=== PATIENT | female | born 2000 | race Caucasian/White ===

== ENCOUNTER 2023-08-03 10:04 | Observation (INO) ==
[2023-08-03] MEDS ORDERED: ALBUTEROL 0.083% NEBU SOLN 3 ML VIAL NEB STA (10:30)
--- NOTE | 2023-08-03 10:33 | Emergency Department Note ---
Impression & Plan Hypoxia, Asthma with exacerbation ED Provider Note NAME: KORI NERI AGE: 23 SEX: F : 2000 ARRIVES VIA: Ambulance INFORMANT: Patient ED PROVIDER(S): Antione Mclain DO CHIEF COMPLAINT: shortness of breath HPI: Patient is a 23-year-old female who is a [employer] student with a past medical history of asthma that presents to the ER for shortness of breath. Symptoms started on Wednesday have been gradually worsening. She does use albuterol, Flovent, Singulair and neb treatments. She went to [facility] and received 125 of Solu-Medrol. Denies any headache or change in vision. She admits to midsternal chest pain and shortness of breath which feels consistent with her previous bouts. ADDITIONAL HISTORY OBTAINED: Per HPI Chronic Medical/Social Conditions Affecting Care: Per HPI PAST MEDICAL HISTORY:See Below PAST SURGICAL HISTORY:See Below FAMILY HISTORY:See Below SOCIAL HISTORY:See Below HOME MEDICATIONS:See Below ALLERGIES:See Below VITALS:See Below PHYSICAL EXAMINATION: GENERAL: Sitting up in chair, alert, slightly dyspneic with conversation EYE EXAM: normal conjunctiva. OROPHARYNX: mucous membranes are moist NECK: supple, no nuchal rigidity, no adenopathy, non-tender LUNGS: Diffuse wheezing bilaterally with poor air movement. Normal chest wall mechanics HEART: no murmurs, S1 normal and S2 normal ABDOMEN: abdomen soft, non-tender, normo-active bowel sounds, no masses, no rebound or guarding. UPPER EXTREMITIES: upper extremities are grossly normal. LOWER EXTREMITIES: No pitting edema. NEURO EXAM: Normal sensorium, cranial nerves II-XII grossly intact, normal speech, no gross weakness of arms, no gross weakness of legs. MEDICAL DECISION MAKING: Patient is a 23-year-old female who presents to the ER for above-stated complaint. IV was established blood work was obtained. Labs show mild leukocytosis of 10,000. No significant anemia. INR unremarkable. D-dimer n egative at 250. BMP along with LFTs bilirubin was unremarkable. Troponin was negative. Viral panel was positive for rhinovirus. Patient was hypoxic at 88% after an hour-long neb treatment. She already received steroids prior to arrival. She did feel significantly better but was still slightly hypoxic and placed on 2 L admitted to the hospitalist for further work-up. External Records Reviewed: External records reviewed from [facility] show Solu-Medrol given Consults/Care Managements Discussions: Per [facility] Triage Nursing notes reviewed. Limited review of prior medical records performed Vital Signs: reviewed and remarkable for no significant abnormalities Differential diagnosis: Differential diagnoses includes but is not limited to pneumonia, bronchitis, COPD/Asthma exacerbation, pneumothorax, pulmonary embolism, congestive heart failure, acute coronary syndrome ER treatment provided: See below Diagnostics interpreted by me include EKG and cardiac monitoring as listed below: -Cardiac Monitoring: An order was placed for continuous cardiac monitoring. The monitor shows a rate of 101 with sinus rhythm. -ECG: Sinus rhythm rate of 98 Left axis No PVCs T wave inversion V3 through V6 QTc 436 -Laboratory studies:Interpreted by me as stated above in MDM and shown below. Imaging studies: Xrays: As interpreted by me: Portable AP upright 1 view of the chest shows no focal infiltrate CTs show: none Procedures:none Critical Care: I have personally spent 31 minutes of critical care time in the direct management of this patient. This includes bedside care, interpretation of diagnostic studies, and testing, discussion with consultants, patient, and family members, and other required patient management activities. This 31 minutes is in excess of all separately billable procedures. 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 Beliefs That Will Affect Care: None Current Living Situation: Other Current Living Situation Comment: roommates - college student Feels Safe at Home: Yes Safety Concerns: Feels Safe At This Time Assistive Devices: Glasses and Nebulizer Allergies Allergies Allergy/AdvReac Type Severity Reaction Status Date / Time No Known Allergies Allergy Unverified 08/03/23 14:31 Home Meds Home Medications Medication Instructions Recorded Confirmed albuterol sulfate 2.5 mg/3 mL 2.5 mg continuous nebulization Q4H 08/03/23 08/03/23 (0.083 %) solution for nebulization PRN Wheezing fluticasone propionate 220 2 inh inhalation BID 08/03/23 08/03/23 mcg/actuation HFA aerosol inhaler (Flovent HFA) sertraline 50 mg tablet 100 mg PO HS 08/03/23 08/03/23 Results & Data (ED) Vital Signs Vital Signs - 24 hr 08/03/23 10:16 08/03/23 10:37 08/03/23 10:44 Temperature 36.7 C Temperature Source Temporal Artery Scan Pulse Rate 88 Pulse Rate [Finger] 93 H Pulse Rhythm Regular Pulse Rhythm [Finger] Regular Pulse Strength Normal Pulse Strength [Finger] Normal Respiratory Rate 22 Respiratory Effort / Characteristics Non-Labored Spontaneous Respiratory Depth Normal Respiratory Pattern Regular Blood Pressure 111/72 Blood Pressure [Right Arm] Blood Pressure Mean 85 Blood Pressure Mean [Right Arm] Blood Pressure Position Sitting Pulse Oximetry 100 89 L 100 Oxygen Delivery Method Nebulizer Room Air Nebulizer Oxygen Flow Rate 8 10 Sepsis Recent Fever Within 48 Hours No Sepsis New/Unexplained Change in Mental Status No Sepsis Action Taken by Nursing No Action Required Oxygen Flow Rate - Titration Pulse Oximetry Post Tiitration 08/03/23 11:51 08/03/23 12:00 08/03/23 12:10 Temperature Temperature Source Pulse Rate 94 H 88 Pulse Rate [Finger] 100 H Pulse Rhythm Pulse Rhythm [Finger] Pulse Strength Pulse Strength [Finger] Respiratory Rate 22 26 H 22 Respiratory Effort / Characteristics Respiratory Depth Respiratory Pattern Blood Pressure 131/80 Blood Pressure [Right Arm] 107/80 Blood Pressure Mean 97 Blood Pressure Mean [Right Arm] 89 Blood Pressure Position Pulse Oximetry 94 91 91 Oxygen Delivery Method Room Air Room Air Room Air Oxygen Flow Rate Sepsis Recent Fever Within 48 Hours Sepsis New/Unexplained Change in Mental Status Sepsis Action Taken by Nursing Oxygen Flow Rate - Titration Pulse Oximetry Post Tiitration 08/03/23 12:23 08/03/23 12:30 Temperature Temperature Source Pulse Rate 96 H Pulse Rate [Finger] Pulse Rhythm Pulse Rhythm [Finger] Pulse Strength Pulse Strength [Finger] Respiratory Rate 21 Respiratory Effort / Characteristics Respiratory Depth Respiratory Pattern Blood Pressure 117/86 Blood Pressure [Right Arm] Blood Pressure Mean 96 Blood Pressure Mean [Right Arm] Blood Pressure Position Pulse Oximetry 89 L 92 Oxygen Delivery Method Nasal Cannula Nasal Cannula Oxygen Flow Rate 0 2 Sepsis Recent Fever Within 48 Hours Sepsis New/Unexplained Change in Mental Status Sepsis Action Taken by Nursing Oxygen Flow Rate - Titration 2 Pulse Oximetry Post Tiitration 96 Laboratory Data 08/03/23 11:06 08/03/23 11:10 Lab Results 08/03/23 08/03/23 08/03/23 Range/Units 10:34 10:34 10:34 WBC Cancelled RBC Cancelled Hgb Cancelled Hct Cancelled MCV Cancelled MCH Cancelled MCHC Cancelled RDW Std Deviation Cancelled RDW Coeff of Didier Cancelled Plt Count Cancelled MPV Cancelled Immature Gran % (Auto) Cancelled Neut % (Auto) Cancelled Lymph % (Auto) Cancelled [place] % (Auto) Cancelled Eos % (Auto) Cancelled Baso % (Auto) Cancelled Neut # (Auto) Cancelled Lymph # (Auto) Cancelled [place] # (Auto) Cancelled Eos # (Auto) Cancelled Baso # (Auto) Cancelled Immature Gran # (Auto) Cancelled Absolute Nucleated RBC Cancelled Nucleated RBC % (auto) Cancelled Neutrophils % (Manual) Cancelled Band Neutrophils % Cancelled Lymphocytes % (Manual) Cancelled Prolymphocyte % Cancelled Reactive Lymphs % (Man) Cancelled Monocytes % (Manual) Cancelled Eosinophils % (Manual) Cancelled Basophils % (Manual) Cancelled Metamyelocytes % (Man) Cancelled Myelocytes % (Man) Cancelled Promyelocytes % (Man) Cancelled Blast Cells % (Manual) Cancelled Plasma Cell % (Manual) Cancelled Other Cells % Cancelled Nucleated RBC % Cancelled Neutrophils # (Manual) Cancelled Band Neutrophils # Cancelled Total Absolute Neuts Cancelled Lymphocytes # (Manual) Cancelled Prolymphocyte # Cancelled Reactive Lymphs # Cancelled Total Abs Lymphocytes Cancelled Monocytes # (Manual) Cancelled Eosinophils # (Manual) Cancelled Basophils # (Manual) Cancelled Metamyelocytes # (Man) Cancelled Myelocytes # (Manual) Cancelled Promyelocytes # (Man) Cancelled Blast Cells # (Man) Cancelled Plasma Cell # (Manual) Cancelled Other Cells # Cancelled Nucleated RBCs # (Man) Cancelled Hypersegmented Neuts Cancelled Hyposegmented Neuts Cancelled Hypogranular Neuts Cancelled Large Granular Lymphs Cancelled # Lrg Granular Lymphs Cancelled Hairy Cells Cancelled Smudge Cells Cancelled Toxic Granulation Cancelled Toxic Vacuolation Cancelled Dohle Bodies Cancelled Osiel Rods Cancelled Platelet Estimate Cancelled Hypogranular Platelets Cancelled Giant Platelets Cancelled Platelet Satelliting Cancelled RBC Morphology Cancelled Polychromasia Cancelled Hypochromasia Cancelled Poikilocytosis Cancelled Basophilic Stippling Cancelled Anisocytosis Cancelled Microcytosis Cancelled Macrocytosis Cancelled Spherocytes Cancelled Pappenheimer Bodies Cancelled Sickle Cells Cancelled Target Cells Cancelled Tear Drop Cells Cancelled Ovalocytes Cancelled Stomatocytes Cancelled [place] Bodies Cancelled Echinocytes Cancelled Acanthocytes (Spur) Cancelled Rouleaux Cancelled RBC Agglutinates Cancelled Schistocytes Cancelled Sezary Cell Cancelled PT Cancelled INR Cancelled APTT Cancelled PTT Ratio Cancelled D-Dimer (0-500) ug/L FEU Sodium Cancelled Potassium Cancelled Chloride Cancelled Carbon Dioxide Cancelled Anion Gap Cancelled BUN Cancelled Creatinine Cancelled Est Cr Clr Drug Dosing Cancelled Est GFR ( Amer) Cancelled Est GFR (Non-Af Amer) Cancelled BUN/Creatinine Ratio Cancelled Glucose Cancelled Calcium Cancelled Magnesium (1.7-2.4) mg/dl Total Bilirubin Cancelled AST Cancelled ALT Cancelled Alkaline Phosphatase Cancelled Troponin I High Sens Cancelled Total Protein Cancelled Albumin Cancelled Globulin Cancelled Albumin/Globulin Ratio Cancelled Adenovirus (PCR) (NotDetected) B. pertussis DNA (PCR) (NotDetected) B.parapertussis DNA PCR (NotDetected) C. pneumoniae DNA (PCR) (NotDetected) Coronavirus OC43 (PCR) (NotDetected) Coronavirus HKU1 (PCR) (NotDetected) Coronavirus 229E (PCR) (NotDetected) SARS-CoV-2 (PCR) (NotDetected) Coronavirus NL63 (PCR) (NotDetected) Human Metapneumovir PCR (NotDetected) Influenza Type A (PCR) (NotDetected) Influenza Type B (PCR) (NotDetected) M. pneumoniae (PCR) (NotDetected) Parainfluenza 1 (PCR) (NotDetected) Parainfluenza 2 (PCR) (NotDetected) Parainfluenza 3 (PCR) (NotDetected) Parainfluenza 4 (PCR) (NotDetected) RSV (PCR) (NotDetected) Entero/Rhino (PCR) (NotDetected) Blood Parasites ID Cancelled 08/03/23 08/03/23 08/03/23 Range/Units 10:34 11:06 11:10 WBC 10.81 H RBC 4.27 Hgb 12.6 Hct 37.0 MCV 86.7 MCH 29.5 MCHC 34.1 RDW Std Deviation 43.8 RDW Coeff of Didier 13.9 Plt Count 248 MPV 9.6 Immature Gran % (Auto) 0.4 Neut % (Auto) 83.1 Lymph % (Auto) 7.4 [place] % (Auto) 3.2 Eos % (Auto) 5.7 Baso % (Auto) 0.2 Neut # (Auto) 8.98 H Lymph # (Auto) 0.80 L [place] # (Auto) 0.35 Eos # (Auto) 0.62 H Baso # (Auto) 0.02 Immature Gran # (Auto) 0.04 Absolute Nucleated RBC Nucleated RBC % (auto) Neutrophils % (Manual) Band Neutrophils % Lymphocytes % (Manual) Prolymphocyte % Reactive Lymphs % (Man) Monocytes % (Manual) Eosinophils % (Manual) Basophils % (Manual) Metamyelocytes % (Man) Myelocytes % (Man) Promyelocytes % (Man) Blast Cells % (Manual) Plasma Cell % (Manual) Other Cells % Nucleated RBC % Neutrophils # (Manual) Band Neutrophils # Total Absolute Neuts Lymphocytes # (Manual) Prolymphocyte # Reactive Lymphs # Total Abs Lymphocytes Monocytes # (Manual) Eosinophils # (Manual) Basophils # (Manual) Metamyelocytes # (Man) Myelocytes # (Manual) Promyelocytes # (Man) Blast Cells # (Man) Plasma Cell # (Manual) Other Cells # Nucleated RBCs # (Man) Hypersegmented Neuts Hyposegmented Neuts Hypogranular Neuts Large Granular Lymphs # Lrg Granular Lymphs Hairy Cells Smudge Cells Toxic Granulation Toxic Vacuolation Dohle Bodies Osiel Rods Platelet Estimate Hypogranular Platelets Giant Platelets Platelet Satelliting RBC Morphology Polychromasia Hypochromasia Poikilocytosis Basophilic Stippling Anisocytosis Microcytosis Macrocytosis Spherocytes Pappenheimer Bodies Sickle Cells Target Cells Tear Drop Cells Ovalocytes Stomatocytes Simmons[place] Bodies Echinocytes Acanthocytes (Spur) Rouleaux RBC Agglutinates Schistocytes Sezary Cell PT 11.0 INR 1.0 APTT 26.9 PTT Ratio 1.0 D-Dimer 250 (0-500) ug/L FEU Sodium Potassium Chloride Carbon Dioxide Anion Gap BUN Creatinine Est Cr Clr Drug Dosing Est GFR ( Amer) Est GFR (Non-Af Amer) BUN/Creatinine Ratio Glucose Calcium Magnesium (1.7-2.4) mg/dl Total Bilirubin AST ALT Alkaline Phosphatase Troponin I High Sens Total Protein Albumin Globulin Albumin/Globulin Ratio Adenovirus (PCR) Not Detected (NotDetected) B. pertussis DNA (PCR) Not Detected (NotDetected) B.parapertussis DNA PCR Not Detected (NotDetected) C. pneumoniae DNA (PCR) Not Detected (NotDetected) Coronavirus OC43 (PCR) Not Detected (NotDetected) Coronavirus HKU1 (PCR) Not Detected (NotDetected) Coronavirus 229E (PCR) Not Detected (NotDetected) SARS-CoV-2 (PCR) Not Detected (NotDetected) Coronavirus NL63 (PCR) Not Detected (NotDetected) Human Metapneumovir PCR Not Detected (NotDetected) Influenza Type A (PCR) Not Detected (NotDetected) Influenza Type B (PCR) Not Detected (NotDetected) M. pneumoniae (PCR) Not Detected (NotDetected) Parainfluenza 1 (PCR) Not Detected (NotDetected) Parainfluenza 2 (PCR) Not Detected (NotDetected) Parainfluenza 3 (PCR) Not Detected (NotDetected) Parainfluenza 4 (PCR) Not Detected (NotDetected) RSV (PCR) Not Detected (NotDetected) Entero/Rhino (PCR) DETECTED A* (NotDetected) Blood Parasites ID 08/03/23 08/03/23 Range/Units 11:10 11:10 WBC RBC Hgb Hct MCV MCH MCHC RDW Std Deviation RDW Coeff of Didier Plt Count MPV Immature Gran % (Auto) Neut % (Auto) Lymph % (Auto) [place] % (Auto) Eos % (Auto) Baso % (Auto) Neut # (Auto) Lymph # (Auto) [place] # (Auto) Eos # (Auto) Baso # (Auto) Immature Gran # (Auto) Absolute Nucleated RBC Nucleated RBC % (auto) Neutrophils % (Manual) Band Neutrophils % Lymphocytes % (Manual) Prolymphocyte % Reactive Lymphs % (Man) Monocytes % (Manual) Eosinophils % (Manual) Basophils % (Manual) Metamyelocytes % (Man) Myelocytes % (Man) Promyelocytes % (Man) Blast Cells % (Manual) Plasma Cell % (Manual) Other Cells % Nucleated RBC % Neutrophils # (Manual) Band Neutrophils # Total Absolute Neuts Lymphocytes # (Manual) Prolymphocyte # Reactive Lymphs # Total Abs Lymphocytes Monocytes # (Manual) Eosinophils # (Manual) Basophils # (Manual) Metamyelocytes # (Man) Myelocytes # (Manual) Promyelocytes # (Man) Blast Cells # (Man) Plasma Cell # (Manual) Other Cells # Nucleated RBCs # (Man) Hypersegmented Neuts Hyposegmented Neuts Hypogranular Neuts Large Granular Lymphs # Lrg Granular Lymphs Hairy Cells Smudge Cells Toxic Granulation Toxic Vacuolation Dohle Bodies Osiel Rods Platelet Estimate Hypogranular Platelets Giant Platelets Platelet Satelliting RBC Morphology Polychromasia Hypochromasia Poikilocytosis Basophilic Stippling Anisocytosis Microcytosis Macrocytosis Spherocytes Pappenheimer Bodies Sickle Cells Target Cells Tear Drop Cells Ovalocytes Stomatocytes Simmons-[place] Bodies Echinocytes Acanthocytes (Spur) Rouleaux RBC Agglutinates Schistocytes Sezary Cell PT INR APTT PTT Ratio D-Dimer Cancelled (0-500) ug/L FEU Sodium 139 Potassium 3.4 L Chloride 106 Carbon Dioxide 24 Anion Gap 9 BUN 11 Creatinine 0.88 Est Cr Clr Drug Dosing 108.5 Est GFR ( Amer) 108.9 Est GFR (Non-Af Amer) 93.9 BUN/Creatinine Ratio 12.5 Glucose 109 H Calcium 9.3 Magnesium 1.8 (1.7-2.4) mg/dl Total Bilirubin 0.5 AST 19 ALT 14 Alkaline Phosphatase 65 Troponin I High Sens 2.6 Total Protein 6.9 Albumin 4.2 Globulin 2.7 Albumin/Globulin Ratio 1.6 Adenovirus (PCR) (NotDetected) B. pertussis DNA (PCR) (NotDetected) B.parapertussis DNA PCR (NotDetected) C. pneumoniae DNA (PCR) (NotDetected) Coronavirus OC43 (PCR) (NotDetected) Coronavirus HKU1 (PCR) (NotDetected) Coronavirus 229E (PCR) (NotDetected) SARS-CoV-2 (PCR) (NotDetected) Coronavirus NL63 (PCR) (NotDetected) Human Metapneumovir PCR (NotDetected) Influenza Type A (PCR) (NotDetected) Influenza Type B (PCR) (NotDetected) M. pneumoniae (PCR) (NotDetected) Parainfluenza 1 (PCR) (NotDetected) Parainfluenza 2 (PCR) (NotDetected) Parainfluenza 3 (PCR) (NotDetected) Parainfluenza 4 (PCR) (NotDetected) RSV (PCR) (NotDetected) Entero/Rhino (PCR) (NotDetected) Blood Parasites ID Administered Medications Albuterol (Albut/Ipratrop 3mg/0.5mg Neb 3 Ml Vial) 3 ml NEB QIDR NATALIE; Protocol Stop: 09/02/23 14:59 Last Admin: 08/03/23 13:53 Dose: 3 ml Documented By: EAM Discontinued Medications Albuterol (Albuterol 0.083% Nebu Soln 3 Ml Vial) 10 mg NEB NOW STA; Protocol Stop: 08/03/23 10:31 Last Admin: 08/03/23 10:38 Dose: 10 mg Documented By: NA Potassium Chloride (Potassium Chloride Crtab 20 Meq Tabcr) 40 meq PO Q2H NATALIE Stop: 08/03/23 14:46 Last Admin: 08/03/23 14:09 Dose: 40 meq Documented By: [facility] Imaging Data Radiologist's Impression: Chest X-Ray 08/03/23 10:22 XR chest 1V not portable CLINICAL HISTORY: Chest pain, nonspecific TECHNIQUE: Single frontal radiograph of the chest was obtained. Comparison: Comparison is made to chest radiograph 11/26/2021 FINDINGS: No lines and tubes are seen. The cardiomediastinal silhouette is normal. The lungs are clear. No evidence of pleural effusion or pneumothorax. IMPRESSION: No acute chest disease. ACT 112: Negative or not required by law. Electronically signed by: Jl Oliver M.D. 08/03/2023 11:51 AM Discharge Plan Visit Data Chief Complaint: Respiratory Problems ED Provider: Antione Mclain Discharge Problem: Hypoxia, Asthma with exacerbation Patient Disposition: Admitted As Inpatient Discharge Instructions Interventions: ED Discharge Assessment Last Done: 08/03/23 14:50
[2023-08-03 11:23] LABS: Basophils # (auto) 0.02 K/uL (0.00-0.20); Basophils % (auto) 0.2 %; Eosinophils # (auto) 0.62 K/uL (0.00-0.50); Eosinophils % (auto) 5.7 %; Hemoglobin 12.6 g/dl (12.0-16.0); Immature Granulocytes # (auto) 0.04 K/uL (0.01-0.20); Immature Granulocytes % (auto) 0.4 %; Lymphocytes % (auto) 7.4 %; Mean Corpuscular Hemoglobin 29.5 pg (25.0-34.0); Mean Corpuscular Hgb Conc 34.1 g/dL (32.0-36.0); Mean Corpuscular Volume 86.7 fL (80.0-100.0); Mean Platelet Volume 9.6 fL (9.4-12.4); Monocytes # (auto) 0.35 K/uL (0.11-0.59); Monocytes % (auto) 3.2 %; Neutrophils # (auto) 8.98 K/uL (1.40-6.50); Neutrophils % (auto) 83.1 %; Platelet Count 248 K/uL (130-400); RDW Coefficient of Variation 13.9 % (11.5-14.5); RDW Standard Deviation 43.8 fL (36.4-46.3); Red Blood Count 4.27 M/uL (4.20-5.40); White Blood Count 10.81 K/ul (4.8-10.8)
[2023-08-03 11:35] LABS: Adenovirus PCR Not Detected (NotDetected); Bordetella parapertussis PCR Not Detected (NotDetected); Bordetella pertussis PCR Not Detected (NotDetected); Chlamydia pneumoniae PCR Not Detected (NotDetected); Coronavirus 229E PCR Not Detected (NotDetected); Coronavirus CoV-2 (COVID19)PCR Not Detected (NotDetected); Coronavirus HKU1 PCR Not Detected (NotDetected); Coronavirus NL63 PCR Not Detected (NotDetected); Coronavirus OC43PCR Not Detected (NotDetected); Human Metapneumovirus PCR Not Detected (NotDetected); Influenza A PCR Not Detected (NotDetected); Influenza B PCR Not Detected (NotDetected); Mycoplasma pneumoniae PCR Not Detected (NotDetected); Parainfluenza Virus 1 PCR Not Detected (NotDetected); Parainfluenza Virus 2 PCR Not Detected (NotDetected); Parainfluenza Virus 3 PCR Not Detected (NotDetected); Parainfluenza Virus 4 PCR Not Detected (NotDetected); Respiratory Syncytial VirusPCR Not Detected (NotDetected)
[2023-08-03 11:53] LABS: Partial Thromboplastin Time 26.9 Seconds (21.0-31.0)
--- NOTE | 2023-08-03 11:53 | XRay Report ---
XR chest 1V not portable CLINICAL HISTORY: Chest pain, nonspecific TECHNIQUE: Single frontal radiograph of the chest was obtained. Comparison: Comparison is made to chest radiograph 11/26/2021 FINDINGS: No lines and tubes are seen. The cardiomediastinal silhouette is normal. The lungs are clear. No evid ence of pleural effusion or pneumothorax. IMPRESSION: No acute chest disease. ACT 112: Negative or not required by law. Electronically signed by: Jl Oliver M.D. 08/03/2023 11:51 AM
[2023-08-03 12:01] LABS: Albumin Globulin Ratio 1.6 (0.9-2); Albumin Level 4.2 gm/dl (3.4-5.0); BUN Creatinine Ratio 12.5 (10-20); Bilirubin,Total 0.5 mg/dl (0.2-1.0); Calcium 9.3 mg/dl (8.6-10.3); Creatinine Clr Calc Pharmacy 108.5 ml/min; Est GFR (African American) 108.9 ml/min; Est GFR (Non-African American) 93.9 ml/min; Globulin 2.7 gm/dl (2.5-4.0); Potassium 3.4 mmol/L (3.5-5.1); Total Protein 6.9 gm/dl (6.0-8.3)
[2023-08-03 12:06] LABS: Troponin I High Sensitivity 2.6 pg/ml (0-14)
[2023-08-03 12:09] LABS: Rhinovirus/Enterovirus PCR DETECTED (NotDetected)
--- NOTE | 2023-08-03 12:40 | History & Physical Report ---
Date of Service August 03, 2023 Assessment & Plan (1) Hypoxia: Plan: -Admit to med/tele on continuous pulse oximetry -Currently stable on 2L NC, hemodynamically stable, and without respiratory distress -Patient was sent to the ED from [facility] after being found to be significantly dyspneic and hypoxic at 89% on RA -Started to develop URI symptoms on 08/01 which have progressed; were not relieved by the patient's Flovent or albuterol nebulizer -S/P 2, one hour albuterol nebulizer treatments and 125 mg IV Solu-medrol with improvement in symptoms but not resolution -At this time her SOB and hypoxia are likely due to asthma exacerbation due to acute rhinovirus infection, but PE cannot be ruled out at this time with her chest pressure/discomfort -Will obtain D-dimer; if d-dimer is elevated will obtain CTA of the chest with PE protocol -Will start her on 40 mg Prednisone daily x 4 days starting tomorrow as she already received Solu-Medrol prior to arrival -Will start scheduled DuoNebs with prn DuoNebs as well for ongoing wheezing/SOB -Continue home flovent -Adding on mag level, if < 2.0 will give 2gm IV mag-sulfate -Prn O2 to keep SpO2 at or above 94%, wean as able -Incentive spirometry and flutter therapy -OOB with waling in [place] for DVT PPX -Regular diet -AM CBC, BMP, Mag (2) Chest discomfort: Plan: -Has been experiencing substernal chest pressure/tightness since URI symptoms started -Has not radiated anywhere else -Worsens with deep inspiration -ECH without acute ST segment changes, does have T-wave inversion -High sen trop WNL in the ED -Likely due to acute asthma exacerbation 2/2 rhinovirus infection -Will FU on d-dimer; if elevated will obtain CTA of the chest with PE protocol for further evaluation -Continue to monitor on tele (3) Hypokalemia: Plan: -Noted to be 3.4 today -Could be due to recent prolonged albuterol treatments -Does have t-wave inversion on ECG today -Will give 2 doses of 40 meq PO KCL -Continue to monitor on tele and FU on mag level -Monitor am potassium level (4) Rhinovirus infection: Plan: -See hypoxia (5) Asthma: Plan: -See hypoxia (6) Anxiety: Plan: -Continue sertraline Plan The patient was discussed with Dr. Bower at the time of the admission History of Present Illness Chief Complaint: SOB, Hypoxia Primary Care Provider: [facility] Kaushik is a 23 year old female with a PMH significant for Asthma, seasonal allergies, and anxiety who was sent to the [facility] ED from [facility] this am due to ongoing SOB and hypoxia in the setting of likely asthma exacerbation. Per the ED staff, the patient was given a 1 hour albuterol nebulizer treatment by [facility] and 125 mg Solu-medrol by EMS in route. In the ED she was initially noted to be significantly dyspneic and hypoxia at 89% on RA but otherwise stable. After another hour-long albuterol nebulizer the patient was improving symptomatically but still transiently hypoxic. Labs were significant for full respiratory biofire positive for Rhinovirus, and potassium of 3.4. Chest xray was read as " No acute chest disease.". We were asked to admit the patient for further treatment of asthma exacerbation. At the time of the exam the patient was sitting in bed in no acute distress. She states that she started to develop head congestion, runny nose, a non-productive cough, increased wheezing/SOB, and central chest tightness on 08/01. She continued to use her home albuterol nebulizers and flovent without relief which is why she went to [facility] earlier today. She states that her chest discomfort has been substernal and feels like tightness/pressure. While she gets a similar sensation when she has previous asthma exacerbations she states that this chest pressure felt more severe than normal. When asked, she states that the chest pressure/discomfort is exacerbated with deep inspiration. She feels as though her symptoms have improved with initial treatments given prior to admission but she does not feel back to her baseline. When asked, she denies tobacco use or vaping. She denies recent fever, hemoptysis, productive cough, nausea, vomiting, diarrhea, dysuria, hematuria, melena, LE swelling/pain, and recent trauma. Please refer to Dr. Bower's attestation for any changes to the treatment plan Allergies Allergy/AdvReac Type Severity Reaction Status Date / Time No Known Allergies Allergy Unverified 08/03/23 14:31 Home Medications Medication Instructions Recorded Confirmed Type albuterol sulfate 2.5 mg/3 mL 2.5 mg continuous nebulization Q4H 08/03/23 08/03/23 History (0.083 %) solution for nebulization PRN Wheezing fluticasone propionate 220 2 inh inhalation BID 08/03/23 08/03/23 History mcg/actuation HFA aerosol inhaler (Flovent HFA) sertraline 50 mg tablet 100 mg PO HS 08/03/23 08/03/23 History Past Med/Surg History Social History Smoking Status: Never smoker Hx Alcohol Use: Yes Hx Substance Use: No Preferred Language: Kiswahili Communication Ability: Effective Office Services Associate Required: No Beliefs That Will Affect Care: None Current Living Situation: Other Current Living Situation Comment: roommates - college student Feels Safe at Home: Yes Safety Concerns: Feels Safe At This Time Assistive Devices: Glasses and Nebulizer Physical Exam Physical Exam: Physical Exam: General: In no acute distress, stated age, ill appearing but non-toxic HEENT: Normocephalic, atraumatic, no scleral icterus, pupils around round, symmetrical, and reactive to light, moist mucus membranes, trachea midline, no thyromegaly Chest/Pulm: No respiratory distress, symmetrical chest expansion, scattered expiratory wheezing throughout Cardiac: RRR, no murmurs noted Abdomen: Negative for ascites and bruising, normoactive bowel sounds, soft, non-tender to palpation throughout Musculoskeletal: Symmetrical and without signs of acute trauma, upper and lower extremities with full ROM, no atrophy, spasticity, or flaccidity Extremities: Radial, dorsalis pedis, and posterior tibial pulses are intact and symmetrical, no edema noted in the BL LE's Skin: Warm, dry, no rashes , lesions, or scars noted Neuro: Alert and oriented to person, place, month, year, and president, no focal defects, no tremors noted Psych: No acute distress, calm and cooperative during the exam Results & Data Results & Data Vital Signs (Past 12 Hours) Vital Signs Temp Pulse Pulse Resp BP BP Pulse Ox 08/03/23 12:23 89 L 08/03/23 12:10 88 22 131/80 91 08/03/23 12:00 94 H 26 H 91 08/03/23 11:51 100 H 22 107/80 94 08/03/23 10:44 100 08/03/23 10:37 93 H 89 L 08/03/23 10:16 36.7 C 88 22 111/72 100 O2 Del Method O2 Flow Rate 08/03/23 12:23 Nasal Cannula 0 08/03/23 12:10 Room Air 08/03/23 12:00 Room Air 08/03/23 11:51 Room Air 08/03/23 10:44 Nebulizer 10 08/03/23 10:37 Room Air 08/03/23 10:16 Nebulizer 8 Laboratory Results Chest X-Ray 08/03/23 10:22 XR chest 1V not portable CLINICAL HISTORY: Chest pain, nonspecific TECHNIQUE: Single frontal radiograph of the chest was obtained. Comparison: Comparison is made to chest radiograph 11/26/2021 FINDINGS: No lines and tubes are seen. The cardiomediastinal silhouette is normal. The lungs are clear. No evidence of pleural effusion or pneumothorax. IMPRESSION: No acute chest disease. ACT 112: Negative or not required by law. Electronically signed by: Jl Oliver M.D. 08/03/2023 11:51 AM Diagnostic Findings Chest X-Ray 08/03/23 10:22 XR chest 1V not portable CLINICAL HISTORY: Chest pain, nonspecific TECHNIQUE: Single frontal radiograph of the chest was obtained. Comparison: Comparison is made to chest radiograph 11/26/2021 FINDINGS: No lines and tubes are seen. The cardiomediastinal silhouette is normal. The lungs are clear. No evidence of pleural effusion or pneumothorax. IMPRESSION: No acute chest disease. ACT 112: Negative or not required by law. Electronically signed by: Jl Oliver M.D. 08/03/2023 11:51 AM ECG Additional Comments: Normal sinus rhythm Nonspecific T wave abnormality Abnormal ECG No previous ECGs available Code Status & VTE Plan Code Status Full code VTE Prophylaxis Plan VTE Prophylaxis will be ordered: Yes Supervising Physician Co-Signing Physician Notes Patient seen and examined, chart reviewed, case discussed with Andrew Davenport PA-C and I agree with the assessment and plan as above except as otherwise noted Labs and images reviewed Kaushik is a 23-year-old female with a history of asthma, seasonal allergies, anxiety who presents with wheezing and shortness of breath disposition for an asthma exacerbation. She has diffuse wheezing on exam. Chest x-ray is clear, D-dimer is normal. There is treatment as asthma exacerbation, continue with Adderall, fluticasone, and course of daily steroids. 2 g magnesium ordered, patient clinically improving at time of reassessment has not yet back to baseline. High-sensitivity troponin is normal and no territorial ST EKG change s. Agree with assessment and management above PG Care Time/CCT Total # of Minutes Spent Total Time Spent with Patient: Total time spent is greater than 50% in coordination of care (as documented) at patient's floor/unit and/or counseling patient: [place] [address] INT INP/OBS CARE 2/55MIN Patient Type New Medical Decision Making Moderate Complexity Diagnoses Hypoxia R09.02 Chest discomfort R07.89 Hypokalemia E87.6 Rhinovirus infection B34.8 Asthma J45.909 Anxiety F41.9
[2023-08-03] MEDS ORDERED: ALBUT/IPRATROP 3MG/0.5MG NEB 3 ML VIAL NEB PRN (13:14)
[2023-08-03 13:44] LABS: D Dimer 250 ug/L FEU (0-500)
[2023-08-03 13:46] LABS: Magnesium 1.8 mg/dl (1.7-2.4)
[2023-08-03] MEDS: ALBUT/IPRATROP 3MG/0.5MG NEB 3 ML VIAL NEB SCH ×2 (13:53→21:07)
[2023-08-03] MEDS ORDERED: Patient's ALLERGY Info needs ENTERED SCH (14:00)
[2023-08-03] MEDS: POTASSIUM CHLORIDE CRTAB 20 MEQ TABCR PO SCH ×2 (14:09→16:46)
--- NOTE | 2023-08-03 14:27 | Electrocardiogram Report ---
Test Reason : Blood Pressure : / mmHG Vent. Rate : 098 BPM Atrial Rate : 098 BPM P-R Int : 136 ms QRS Dur : 086 ms QT Int : 342 ms P-R-T Axes : 068 066 021 degrees QTc Int : 436 ms Normal sinus rhythm Diffuse Minor Nonspecific T wave abnormality Abnormal ECG No previous ECGs available Confirmed by Charli Mohan ([id number]) on 08/03/2023 2:27:22 PM Referred By: Confirmed By:Charli Mohan
[2023-08-03] MEDS: MAGNESIUM SULFATE / D5W 1 GM/100 ML BAG IV SCH ×2 (16:47→16:53)
[2023-08-03] MEDS: FLUTICASONE FUROATE 200MCG 14 PUFFS/INHALER INH SCH (16:50)
[2023-08-03] MEDS ORDERED: SERTRALINE HCL 100 MG TABLET PO SCH (21:00)
[2023-08-03] MEDS: guaiFENesin 600 MG TABCR PO SCH (21:45)
[2023-08-04 05:18] LABS: Basophils # (auto) 0.02 K/uL (0.00-0.20); Basophils % (auto) 0.2 %; Eosinophils # (auto) 0.02 K/uL (0.00-0.50); Eosinophils % (auto) 0.2 %; Hematocrit (blood only) 38.1 % (37.0-47.0); Hemoglobin 12.4 g/dl (12.0-16.0); Immature Granulocytes # (auto) 0.07 K/uL (0.01-0.20); Immature Granulocytes % (auto) 0.6 %; Lymphocytes % (auto) 8.1 %; Mean Corpuscular Hemoglobin 28.6 pg (25.0-34.0); Mean Corpuscular Hgb Conc 32.5 g/dL (32.0-36.0); Mean Corpuscular Volume 87.8 fL (80.0-100.0); Mean Platelet Volume 9.8 fL (9.4-12.4); Monocytes # (auto) 0.85 K/uL (0.11-0.59); Monocytes % (auto) 7.7 %; Neutrophils # (auto) 9.22 K/uL (1.40-6.50); Neutrophils % (auto) 83.2 %; Platelet Count 317 K/uL (130-400); RDW Coefficient of Variation 13.9 % (11.5-14.5); RDW Standard Deviation 45.1 fL (36.4-46.3); Red Blood Count 4.34 M/uL (4.20-5.40); White Blood Count 11.08 K/ul (4.8-10.8)
[2023-08-04 05:48] LABS: BUN Creatinine Ratio 15.5 (10-20); Calcium 9.4 mg/dl (8.6-10.3); Creatinine Clr Calc Pharmacy 116.1 ml/min; Est GFR (African American) 115.1 ml/min; Est GFR (Non-African American) 99.4 ml/min; Magnesium 2.3 mg/dl (1.7-2.4); Potassium 4.7 mmol/L (3.5-5.1)
[2023-08-04] MEDS: ALBUT/IPRATROP 3MG/0.5MG NEB 3 ML VIAL NEB SCH ×2 (07:18→11:02)
[2023-08-04] MEDS: guaiFENesin 600 MG TABCR PO SCH (08:14)
[2023-08-04] MEDS: FLUTICASONE FUROATE 200MCG 14 PUFFS/INHALER INH SCH (08:14)
[2023-08-04] MEDS ORDERED: predniSONE 20 MG TAB PO SCH (09:00)
--- NOTE | 2023-08-04 12:52 | Discharge Summary ---
Date of Service August 04, 2023 Admission HPI Per Admitting Provider Kaushik is a 23 year old female with a PMH significant for Asthma, seasonal allergies, and anxiety who was sent to the [facility] ED from [facility] this am due to ongoing SOB and hypoxia in the setting of likely asthma exacerbation. Per the ED staff, the patient was given a 1 hour albuterol nebulizer treatment by [facility] and 125 mg Solu-medrol by EMS in route. In the ED she was initially noted to be significantly dyspneic and hypoxia at 89% on RA but otherwise stable. After another hour-long albuterol nebulizer the patient was improving symptomatically but still transiently hypoxic. Labs were significant for full respiratory biofire positive for Rhinovirus, and potassium of 3.4. Chest xray was read as " No acute chest disease.". We were asked to admit the patient for further treatment of asthma exacerbation. At the time of the exam the patient was sitting in bed in no acute distress. She states that she started to develop head congestion, runny nose, a non- productive cough, increased wheezing/SOB, and central chest tightness on 08/01. She continued to use her home albuterol nebulizers and flovent without relief which is why she went to [facility] earlier today. She states that her chest discomfort has been substernal and feels like tightness/pressure. While she gets a similar sensation when she has previous asthma exacerbations she states that this chest pressure felt more severe than normal. When asked, she states that the chest pressure/discomfort is exacerbated with deep inspiration. She feels as though her symptoms have improved with initial treatments given prior to admission but she does not feel back to her baseline. When asked, she denies tobacco use or vaping. She denies recent fever, hemoptysis, productive cough, nausea, vomiting, diarrhea, dysuria, hematuria, melena, LE swelling/pain, and recent trauma. Please refer to Dr. Bower's attestation for any changes to the treatment plan Admission Exam Per Admitting Provider General:In no acute distress, stated age, ill appearing but non-toxic HEENT:Normocephalic, atraumatic, no scleral icterus, pupils around round, symmetrical, and reactive to light, moist mucus membranes, trachea midline, no thyromegaly Chest/Pulm:No respiratory distress, symmetrical chest expansion, scattered expiratory wheezing throughout Cardiac:RRR, no murmurs noted Abdomen:Negative for ascites and bruising, normoactive bowel sounds, soft, non-tender to palpation throughout Musculoskeletal:Symmetrical and without signs of acute trauma, upper and lower extremities with full ROM, no atrophy, spasticity, or flaccidity Extremities:Radial, dorsalis pedis, and posterior tibial pulses are intact and symmetrical, no edema noted in the BL LE's Skin:Warm, dry, no rashes , lesions, or scars noted Neuro:Alert and oriented to person, place, month, year, and president, no focal defects, no tremors noted Psych:No acute distress, calm and cooperative during the exam Principal Diagnosis Acute exacerbation of asthma/status asthmaticus Rhinovirus infection Acute hypoxic respiratory failure Discharge Exam general: Awake, conversant Heart: S1, S2/regular rate and rhythm, no murmur rubs or gallops Lungs: mild bilateral wheezing. Normal effort Abdomen: Soft/nontender/nondistended. No hepatosplenomegaly Extremities: No clubbing/cyanosis. No edema Behavior: Appropriate, cooperative Discharge Data Allergies Allergy/AdvReac Type Severity Reaction Status Date / Time No Known Allergies Allergy Unverified 08/03/23 14:31 Consultations 08/03/23 12:24 ED Decision to Admit Stat Hospital Course (1) Hypoxia: initially requiring 2 L of nasal cannula on admission, now off of oxygen. -Patient was sent to the ED from [facility] after being found to be significantly dyspneic and hypoxic at 89% on RA -Started to develop URI symptoms on 08/01 which have progressed; were not relieved by the patient's Flovent or albuterol nebulizer -S/P 2, one hour albuterol nebulizer treatments and 125 mg IV Solu-medrol with improvement in symptoms but not resolution -At this time her SOB and hypoxia are likely due to asthma exacerbation due to acute rhinovirus infection, PE ruled out with a negative D-dimer Patient was started on 40 mg of p.o. prednisone today. She is feeling much better and is almost back to her usual baseline from a breathing standpoint She would like to be discharged to home. We will discharge her on 4 days of p.o. prednisone. (2) Chest discomfort: -Has been experiencing substernal chest pressure/tightness since URI symptoms started - PE ruled out with a negative D-dimer -Likely due to acute asthma exacerbation 2/2 rhinovirus infection resolved today (3) Hypokalemia: -Noted to be 3.4 today -Could be due to recent prolonged albuterol treatments improved after replacement (4) Rhinovirus infection: -See hypoxia (5) Asthma: -See hypoxia (6) Anxiety: -Continue sertraline Plan spoke to patient's father on request on the phone. Total Time Total Time Spent Total Time Spent (In Minutes): 35 Discharge Plan Discharge Items Patient Disposition: Home - Self-Care Reason For Visit: HYPOXIA, ASTHMA EXACERBATION Discharge Diagnosis: Acute exacerbation of asthma Rhinovirus infection Acute hypoxic respiratory failure Activity: Resume your previous activity Non-emergency contact: Primary Care Provider Call non-emergency contact if: you have any medication questions and your symptoms worsen Follow-up/Referrals: [facility] [Primary Care Provider] - Diet: Regular Addtl Attending Provider Instructions: Advised to follow-up with PCP in 1 week Pending Studies at Discharge: No Stand-Alone Forms: My [facility] Medications and DC Order Prescriptions: New prednisone 20 mg Tablet 40 mg PO DAILY 4 Days Qty: 8 0RF Continued albuterol sulfate 2.5 mg /3 mL (0.083 %) solution for nebulization 2.5 mg continuous nebulization Q4H PRN (Reason: Wheezing) fluticasone propionate [Flovent HFA] 220 mcg/actuation HFA aerosol inhaler 2 inh INHALATION BID sertraline 50 mg tablet 100 mg PO HS Discharge Orders: Discharge Order (Routine); Ordered 08/04/23 Ordered By: Christian Hodges Admission Data Admit Date/Time: 08/03/23 12:40 Attending Provider: Christian Hodges Admit Provider: Long Bower Primary Care Provider: [facility] Other Providers: Long Bower Other Interventions: Discharge Summary Assessment (RN) Last Done: 08/04/23 13:55 Coding Level of Care Code 67810 INP/OBS DISCH >30 MIN Diagnoses Hypoxia R09.02 Chest discomfort R07.89 Hypokalemia E87.6 Rhinovirus infection B34.8 Asthma J45.909 Anxiety F41.9
== END 2023-08-04 15:11 | disposition home or self-care (01) ==
LOC: ED 10:04 → INTOOBSV 12:40 → EDINP 12:40 → SUATTDRO 12:40 → 2W 14:50
DX: B34.8 Other viral infections of unspecified site; J45.909 Unspecified asthma, uncomplicated; R07.89 Other chest pain; E87.6 Hypokalemia; R09.02 Hypoxemia; Z79.899 Other long term (current) drug therapy